=== PATIENT | female | born 1995 | race Caucasian/White ===

== ENCOUNTER 2018-03-26 00:13 | Outpatient (CLI) | payer MEDICAID ==
[2018-03-26 00:45] VITALS: BP 94/54
[2018-03-26] MEDS ORDERED: LACTATED RINGERS 1,000 ML IV ONE (01:28)
[2018-03-26 03:17] LABS: Bilirubin,Urine NEG (Negative); Blood,Urine NEG (Negative); Color,Urine Yellow (Yellow); Mucus,Urine FEW /HPF; Protein,Urine <15 mg/dL mg/dL (Negative); Urobilinogen,Urine < 2.0 mg/dL (<2.0)
[2018-03-26] MEDS ORDERED: BRETHINE SUB-Q ONE (03:50)
--- NOTE | 2018-03-26 05:04 | Ultrasound Report ---
FINAL REPORT EXAM: US OB BPP WO NON-STRESS HISTORY: Labor COMPARISONS: None. FINDINGS: Limited 3rd trimester transabdominal grayscale, color Doppler and M-mode ultrasound Single living intrauterine with recorded cardiac activity of 157 beats per minute. Amniotic fluid volume is subjectively normal. Maximum vertical pocket of fluid measures approximately 6.5 cm. Biophysical profile score is 8/8. IMPRESSION: Single living intrauterine with biophysical profile score of 8/8.
== END 2018-03-26 05:31 | disposition home or self-care (01) ==
LOC: TRG 00:13
PROVIDERS: ATTEND Obstetrics & Gynecology
DX: O62.9 Abnormality of forces of labor, unspecified (principal); Z3A.34 34 weeks gestation of pregnancy
CPT/HCPCS: 59025; 76819; 81001; 96360; J3105

== ENCOUNTER 2018-04-12 14:56 | Outpatient (CLI) | payer MEDICAID ==
[2018-04-12 15:27] VITALS: BP 105/62
[2018-04-12] MEDS ORDERED: TYLENOL PO ONE (17:00)
== END 2018-04-12 16:40 | disposition home or self-care (01) ==
LOC: TRG 14:56
PROVIDERS: ATTEND Obstetrics & Gynecology
DX: O47.03 False labor before 37 completed weeks of gestation, third trimester (principal); Z3A.36 36 weeks gestation of pregnancy
CPT/HCPCS: 59025

== ENCOUNTER 2018-04-28 17:33 | Outpatient (CLI) | payer MEDICAID ==
[2018-04-28 18:03] VITALS: BP 116/68
== END 2018-04-28 18:36 | disposition home or self-care (01) ==
LOC: TRG 17:33
PROVIDERS: ATTEND Obstetrics & Gynecology
DX: O47.1 False labor at or after 37 completed weeks of gestation (principal); Z3A.38 38 weeks gestation of pregnancy
CPT/HCPCS: 59025

== ENCOUNTER 2018-04-29 02:26 | Inpatient (IN) | payer MEDICAID ==
[2018-04-29] MEDS ORDERED: SUBLIMAZE ONE (02:31)
[2018-04-29] MEDS ORDERED: LACTATED RINGERS 1,000 ML ONE (02:31)
[2018-04-29] MEDS ORDERED: XYLOCAINE 2% INFILTRATI ONE (02:49)
[2018-04-29] MEDS ORDERED: ePHEDrine SULFATE IV PRN (02:49)
[2018-04-29] MEDS ORDERED: SUBLIMAZE IV PRN (02:49)
[2018-04-29] MEDS ORDERED: BRETHINE SUB-Q PRN (02:49)
[2018-04-29] MEDS ORDERED: BRETHINE IVP PRN (02:49)
[2018-04-29] MEDS ORDERED: MINERAL OIL PO PRN (02:49)
[2018-04-29] MEDS ORDERED: LACTATED RINGERS 1,000 ML IV SCH (03:00)
[2018-04-29] MEDS ORDERED: ZOFRAN IV PRN (03:10)
[2018-04-29 03:18] LABS: Hematocrit 36.1 % (30.3-42.9); Hemoglobin 11.8 gm/dl (10.1-14.3); Mean Corpuscular HGB Conc 33 % (30-34); Mean Corpuscular Hemoglobin 28 pg (28-32); Mean Corpuscular Volume 86 fl (79-97); Platelet Count 281 K/mm3 (140-440); Red Blood Count 4.18 M/mm3 (3.65-5.03); Red Cell Distribution Width 15.7 % (13.2-15.2)
--- NOTE | 2018-04-29 03:22 | History and Physical Report ---
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 of genital herpes: no Rash, Viral, or Febrile illness since last LMP? no Varicella/Chicken Pox Status: Unknown Genetic History Congenital Heart Defect: Mom: no Dad: no Surinder Disease: Mom: no Dad: no Thalassemia Mom: no Dad: no Neural Tube Defect Mom: no Dad: no Down's Syndrome Mom: no Dad: no Sekou-Sachs Mom: no Dad: no Sickle Cell Disease/Trait Mom: no Dad: no Hemophilia Mom: no Dad: no Muscular Dystrophy Mom: no Dad: no Cystic Fibrosis Mom: no Dad: no [place] Chorea Mom: no Dad: no Mental Retardation Mom: no Dad: no Fragile X Mom: no Dad: no Other Genetic/Chromosomal Disorder Mom: no Dad: no Child w/other defect Mom: no Dad: no Enviromental Exposures Xray Exposure: no Medication, drug, or alcohol use since LMP: no Chemical/Other Exposure: no Exposure to Cat Liter: no Hx of Parvovirus (Fifth Disease): no Occupational Exposure to Children: none Current Allergies (reviewed today): No known allergies Past History - Obstetrical History Expected Date of Delivery: 05/06/18 Actual Gestation: 39 Week(s) 0 Day(s) : 2 Para: 1 Hx # Term Pregnancies: 1 Number of Pregnancies: 0 Spontaneous Abortions: 0 Induced : 0 Number of Living Children: 1 Medications and Allergies Allergies Allergy/AdvReac Type Severity Reaction Status Date / Time No Known Allergies Allergy Verified 04/12/18 15:57 Home Medications Medication Instructions Recorded Confirmed Last Taken Type Vit-Fe Fumar-FA [ 1 tab PO QDAY 04/12/18 04/28/18 04/12/18 09: 00 History Vitamin] 1 Active Meds: Active Medications Ephedrine Sulfate (Ephedrine Sulfate) 10 mg IV Q2M PRN PRN Reason: Hypotension Fentanyl (Sublimaze) 100 mcg IV Q2H PRN PRN Reason: Labor Pain Lactated Ringer's (Lactated Ringers) 1,000 mls @ 125 mls/hr IV DIRECT VIDHYA Oxytocin/Sodium Chloride (Pitocin/Ns 20 Unit/1000ml Drip) 20 units in 1,000 mls @ 125 mls/hr IV DIRECT VIDHYA Oxytocin/Sodium Chloride (Pitocin/Ns 30 Unit/500ml) 30 units in 500 mls @ 4 mls /hr IV TITR VIDHYA; Protocol Lidocaine (Xylocaine 2%) 20 ml INFILTRATI ONCE ONE Stop: 04/29/18 02:50 Mineral Oil (Mineral Oil) 30 ml PO QHS PRN PRN Reason: Constipation Ondansetron HCl (Zofran) 4 mg IV Q8H PRN PRN Reason: Nausea And Vomiting Terbutaline Sulfate (Brethine) 0.25 mg SUB-Q ONCE PRN PRN Reason: Hyperstimulation/Hypertonicity Terbutaline Sulfate (Brethine) 0.25 mg IVP ONCE PRN PRN Reason: Hyperstimulation/Hypertonicity - Vital Signs Vital signs: Vital Signs Resp 20 04/29/18 02:38 Temp Pulse Resp BP Pulse Ox 61 20 112/59 04/29/18 02:49 04/29/18 02:38 04/29/18 02:49 - Physical Exam Breasts: Positive: deferred Cardiovascular: Regular rate, Normal S1, Normal S2 Lungs: Positive: Normal air movement Abdomen: Positive: normal appearance, soft, normal bowel sounds. Negative: distention, tenderness Genitourinary (Female): Positive: normal external genitalia Vulva: both: normal Vagina: Positive: normal moisture. Negative: discharge Cervix: Negative: lesion, discharge Uterus: Positive: normal size, normal contour Adnexa: both: normal Anus/Rectum: Positive: normal perianal skin, heme negative. Negative: rectal mass, hemorrhoids Extremities: Positive: normal Deep Tendon Reflex Grade: Normal +2 - Obstetrical FHR: category 1 Uterine Contraction Monitor Mode: External Cervical Dilatation: 5 (nurse rn bsn) Cervical Effacement Percentage: 90 station: -1 Uterine Contraction Pattern: Regular Uterine Tone Measurement Phase: Resting Uterine Contraction Intensity: Moderate Results Result Diagrams: 04/29/18 02:52 Abnormal lab results 04/29/18 Range/Units 02:52 RDW 15.7 H (13.2-15.2) % All other labs normal. GBS Negative HBsAg Screen Negative Negative *1 RPR Non Reactive Non Reactive *2 Rubella Antibodies, IgG 1.47 index Immune >0.99 *3 Non-immune <0.90 Equivocal 0.90 - 0.99 Immune >0.99 ABO Grouping O *4 Rh Factor Positive *5 Please note: Prior records for this patient's ABO / Rh type are not available for additional verification. Antibody Screen Negative Negative *6 WBC 7.4 x10E3/uL 3.4-10.8 *7 RBC [L] 3.67 x10E6/uL 3.77-5.28 *8 Hemoglobin 11.4 g/dL 11.1-15.9 *9 Hematocrit 34.0 % 34.0-46.6 *10 MCV 93 fL 79-97 *11 MCH 31.1 pg 26.6-33.0 *12 MCHC 33.5 g/dL 31.5-35.7 *13 RDW 13.5 % 12.3-15.4 *14 Platelets 345 x10E3/uL 150-379 *15 Neutrophils 71 % Not Estab. *16 Lymphs 23 % Not Estab. *17 Monocytes 5 % Not Estab. *18 Eos 1 % Not Estab. *19 Basos 0 % Not Estab. *20 ! Immature Cells <No Reported Value> *21 Neutrophils (Absolute) 5.2 x10E3/uL 1.4-7.0 *22 Lymphs (Absolute) 1.7 x10E3/uL 0.7-3.1 *23 Monocytes(Absolute) 0.4 x10E3/uL 0.1-0.9 *24 Eos (Absolute) 0.1 x10E3/uL 0.0-0.4 *25 Baso (Absolute) 0.0 x10E3/uL 0.0-0.2 *26 ! Immature Granulocytes 0 % Not Estab. *27 ! Immature Grans (Abs) 0.0 x10E3/uL 0.0-0.1 *28 ! NRBC <No Reported Value> *29 Hematology Comments: <No Reported Value> *30 Tests: (2) AFP Tetra ([id number]) ! Results Report *31 ! Test Results: *Screen Negative* *32 Tests: (3) Cystic Fibrosis Profile (779371) ! CF, Screen Comment: *55 RESULTS: Negative for 32 mutations analyzed Tests: (4) HB Solu + Rflx Fra (054849) Hemoglobin (Hgb) Solubility Negative Negative *57 Tests: (5) Panel 638430 ([id number]) HIV Screen 4th Generation wRfx Non Reactive Non Reactive *58 Tests: (6) HCV Ab w/Rflx to Verification ([id number]) ! HCV Ab <0.1 s/co ratio 0.0-0.9 *59 Assessment and Plan 23yo @ 39 weeks in active labor GBS negative Orders in EMR Anticipate delivery - Patient Problems (1) 39 weeks gestation of Current Visit: Yes Status: Acute (2) Active labor Current Visit: Yes Status: Acute
[2018-04-29] MEDS: PITOCin/NS 20 UNIT/1000ML DRIP 20 UNITS/1,000 ML BAG IV SCH ×2 (03:52→05:31)
[2018-04-29] MEDS ORDERED: PITOCin/NS 30 UNIT/500ML 30 UNITS/500 ML BAG IV SCH (04:00)
[2018-04-29] MEDS ORDERED: TYLENOL PO PRN (04:23)
[2018-04-29] MEDS ORDERED: DULCOLAX PR PRN (04:23)
[2018-04-29] MEDS ORDERED: TUCKS PAD TP PRN (04:23)
[2018-04-29] MEDS ORDERED: LANSINOH TP PRN (04:23)
[2018-04-29] MEDS ORDERED: PHENERGAN PO PRN (04:23)
[2018-04-29] MEDS ORDERED: MILK OF MAGNESIA PO PRN (04:23)
[2018-04-29] MEDS ORDERED: BENADRYL PO PRN (04:23)
[2018-04-29] MEDS ORDERED: NORCO 5/325 PO PRN (04:23)
--- NOTE | 2018-04-29 04:46 | Procedure Note ---
OB Delivery Note - Delivery Date of Delivery: 04/29/18 [employer] Goods Drier: DARLENE STAFFORD Estimated blood loss: 300cc - Vaginal Delivery presentation: vertex Delivery position: OA Intrapartum events: precipitous labor- <3hr, extend. bradycardia Delivery induction: none Delivery monitor: external FHT, internal FHT Route of delivery: Delivery placenta: spontaneous Delivery cord: 3 umbilical vessels Episiotomy: none Delivery laceration: none Anesthesia: intravenous Delivery comments: Pt presented 5cm and progressed to complete rapidly. Pt gives hx of previous child weighing 9 pounds. Pt was pushing reflexively. Once pt started pushing there was minimal descent. bradycardia to the 70. ISE was applied. notified. Pt pushed squatting for several ctx. Returned to lithothomy position. Considerable descent of the head noted. NICU called to LDR. Total time from start of focused pushing to delivery 18 minutes. live born male over intact perineum, crying. Cord clamped and cut. Baby passed to waiting NICU team. Cord blood obtained. Placenta and membrane delivered complete and intact. 3 vessel cord. Pitocin IVFs. 8/9, EBL 300, wgt 6-12. Mom and baby remain LDR stable. notified of delivery. - A at 1 minute: 8 at 5 minutes: 9 Infant Gender: Male (6-12)
[2018-04-29] MEDS ORDERED: SODIUM CHLORIDE FLUSH SYRINGE 10 ML IV NR (05:00)
[2018-04-29] MEDS: MOTRIN PO SCH ×3 (05:32→19:53)
[2018-04-29 15:49] LABS: Hematocrit 31.2 % (30.3-42.9); Hemoglobin 10.4 gm/dl (10.1-14.3)
[2018-04-30] MEDS: MOTRIN PO SCH ×3 (05:13→12:05)
[2018-04-30] MEDS ORDERED: BOOSTRIX IM ONE (06:00)
[2018-04-30] MEDS ORDERED: M-M-R II VACCINE SUB-Q ONE (06:00)
--- NOTE | 2018-04-30 16:20 | Discharge Summary ---
Providers - Providers Date of Admission: 04/29/18 02:30 Date of discharge: 04/30/18 Attending physician: CRISTINA LEE Primary care physician: CRISTINA LEE Hospitalization Reason for admission: active labor (23yo @ 39 weeks in active labor. No complaints today, ambulating in room requesting to be discharged. Minimal bleeding today. Breasts were soft no signs and symptoms of engorgement or infection. Abdomen soft, nontender fundus firm below umbilicus. Extremities without edema and nontender.) Delivery: Girard baby: male Hospital course: 23yo @ 39 weeks in active labor, she had an . Hospital course has been unremarkable, she desires d/c home today after Depoprovera Condition at discharge: Good Disposition: DC-01 TO HOME OR SELFCARE - Discharge Diagnoses (1) Spontaneous vaginal delivery Status: Acute Plan - Discharge Medications Prescriptions: Ibuprofen [Motrin 800 MG tab] 800 mg PO TID PRN #30 tablet PRN Reason: Pain Lidocain2.5%/Prilocai2.5% [Emla] 5 gm TP ONCE #1 tube - Provider Discharge Summary Activity: routine, no sex for 6 weeks, no heavy lifting 4 weeks, no strenuous exercise Additional instructions: [] Smoking cessation referral if applicable(refer to patient education folder for contact #) [] Refer to [facility] Booklet Call your doctor immediately for: * Fever > 100.5 * Heavy vaginal bleeding ( >1 pad per hour) * Severe persistent headache * Shortness of breath * Reddened, hot, painful area to leg or breast * Drainage or odor from incision. * Keep incision clean and dry at all times and follow doctor's instructions regarding bathing/showering - Follow up plan Follow up: CRISTINA LEE MD [Primary Care Provider] - 7 Days Forms: [facility] Discharge Summary
[2018-04-30 16:46] VITALS: BP 102/57
== END 2018-04-30 17:10 | disposition home or self-care (01) | DRG 775 ==
LOC: TRG 02:26 → LD 02:30 → OB 06:11
PROVIDERS: ADMIT Obstetrics & Gynecology; ATTEND Obstetrics & Gynecology
PROC: 10E0XZZ Delivery of Products of Conception, External Approach (ICD-10-PCS; principal; 2018-04-29)
DX: O76 Abnormality in fetal heart rate and rhythm complicating labor and delivery (principal); O62.3 Precipitate labor; Z3A.39 39 weeks gestation of pregnancy; Z37.0 Single live birth
CPT/HCPCS: 36415; 85014; 85018; 85027; 86592; 86850; 86900; 86901; 90471; 90715; 96360; 99211; G0463; J2590; J3010; J7120

== ENCOUNTER 2019-08-04 23:15 | Emergency (ER) | payer MEDICAID ==
[2019-08-05 00:49] LABS: Basophils % (Auto) 0.4 % (0.0-1.8); Eosinophils # (Auto) 0.1 K/mm3 (0.0-0.4); Eosinophils % (Auto) 0.8 % (0.0-4.3); Hematocrit 30.1 % (30.3-42.9); Hemoglobin 10.4 gm/dl (10.1-14.3); Lymphocytes % (Auto) 12.1 % (13.4-35.0); Mean Corpuscular HGB Conc 34 % (30-34); Mean Corpuscular Volume 93 fl (79-97); Monocytes # (Auto) 0.5 K/mm3 (0.0-0.8); Monocytes % (Auto) 5.8 % (0.0-7.3); Platelet Count 308 K/mm3 (140-440); Red Blood Count 3.25 M/mm3 (3.65-5.03); Red Cell Distribution Width 13.4 % (13.2-15.2)
[2019-08-05 00:56] LABS: BUN/Creatinine Ratio 8; Blood Urea Nitrogen 4 mg/dL (7-17); Calcium 8.4 mg/dL (8.4-10.2); Hemolysis Index 15
--- NOTE | 2019-08-05 02:13 | Emergency Department Report ---
ED ENT HPI - General Chief complaint: Dental/Oral Stated complaint: ABSCESS ON LT SIDE OF FACE Time Seen by Provider: 08/05/19 02:13 Source: patient Mode of arrival: Ambulatory Limitations: No Limitations - History of Present Illness Initial comments: Patient is a 24-year-old female that presents emergency room with complaints of left oral abscess and swelling. Patient states now for 5 days. Patient states she was seen in urgent care and given clindamycin and pain medications 2 days ago. Patient states when she started medications the pain got worse. Patient states the swelling also got worse. Patient states the pain is better with rest and worse with movement of her mouth. She denies fever and chills. Patient denies chest pain shortness of breath. Patient states the swelling is swelling down towards her neck. Patient states she is also 21 weeks . Patient states she's not having any abdominal pain or vaginal discharge or problems with the at this time. Patient states she's been followed by an ASSISTANT FILM EDITOR. Patient states she's has twins at this time. MD complaint: other (left lower jaw and check) -: Sudden, days(s) Location: other Severity: severe Severity scale (0 -10): 10 Quality: stabbing Consistency: constant Improves with: rest Worsens with: swallowing, medication, movement Associated Symptoms: gum swelling, pain with swallowing. denies: fever, cough, toothache, sore throat, tinnitus, hearing loss, discharge from ear, rhinorrhea - Related Data Home Medications Medication Instructions Recorded Confirmed Last Taken Vit-Fe Fumar-FA [ 1 tab PO QDAY 04/12/18 04/29/18 04/28/18 Vitamin] Previous Rx's Medication Instructions Recorded Last Taken Type Ibuprofen [Motrin 800 MG tab] 800 mg PO TID PRN #30 tablet 04/29/18 Unknown Rx Lidocain2.5%/Prilocai2.5% [Emla] 5 gm TP ONCE #1 tube 04/30/18 Unknown Rx predniSONE [Deltasone] 10 mg PO .TAPER #21 tab 08/05/19 Unknown Rx Allergies Allergy/AdvReac Type Severity Reaction Status Date / Time No Known Allergies Allergy Verified 04/12/18 15:57 ED Dental HPI - General Chief complaint: Dental/Oral Stated complaint: ABSCESS ON LT SIDE OF FACE Time Seen by Provider: 08/05/19 02:13 Source: patient Mode of arrival: Ambulatory Limitations: No Limitations - Related Data Home Medications Medication Instructions Recorded Confirmed Last Taken Vit-Fe Fumar-FA [ 1 tab PO QDAY 04/12/18 04/29/18 04/28/18 Vitamin] Previous Rx's Medication Instructions Recorded Last Taken Type Ibuprofen [Motrin 800 MG tab] 800 mg PO TID PRN #30 tablet 04/29/18 Unknown Rx Lidocain2.5%/Prilocai2.5% [Emla] 5 gm TP ONCE #1 tube 04/30/18 Unknown Rx predniSONE [Deltasone] 10 mg PO .TAPER #21 tab 08/05/19 Unknown Rx Allergies Allergy/AdvReac Type Severity Reaction Status Date / Time No Known Allergies Allergy Verified 04/12/18 15:57 ED Review of Systems ROS: Stated complaint: ABSCESS ON LT SIDE OF FACE Other details as noted in HPI Constitutional: denies: chills, fever Eyes: denies: eye pain, eye discharge, vision change ENT: dental pain. denies: ear pain, throat pain Respiratory: denies: cough, shortness of breath, wheezing Cardiovascular: denies: chest pain, palpitations Endocrine: no symptoms reported Gastrointestinal: denies: abdominal pain, nausea, diarrhea Genitourinary: denies: urgency, dysuria, discharge Musculoskeletal: denies: back pain, joint swelling, arthralgia Skin: denies: rash, lesions Neurological: denies: headache, weakness, paresthesias Psychiatric: denies: anxiety, depression Hematological/Lymphatic: denies: easy bleeding, easy bruising ED Past Medical Hx - Past Medical History Previous Medical History?: No Hx Hypertension: No Hx Diabetes: No Hx Deep Vein Thrombosis: No Hx Renal Disease: No Hx Sickle Cell Disease: No Hx Seizures: No Hx Asthma: No Hx HIV: No - Surgical History Past Surgical History?: No - Family History Family history: no significant - Social History Smoking Status: Never Smoker Substance Use Type: None - Medications Home Medications: Home Medications Medication Instructions Recorded Confirmed Last Taken Type Vit-Fe Fumar-FA [ 1 tab PO QDAY 04/12/18 04/29/18 04/28/18 History Vitamin] Ibuprofen [Motrin 800 MG tab] 800 mg PO TID PRN #30 tablet 04/29/18 Unknown Rx Lidocain2.5%/Prilocai2.5% [Emla] 5 gm TP ONCE #1 tube 04/30/18 Unknown Rx predniSONE [Deltasone] 10 mg PO .TAPER #21 tab 08/05/19 Unknown Rx ED Physical Exam - General Limitations: No Limitations General appearance: alert, in no apparent distress - Head Head exam: Present: atraumatic, normocephalic - Eye Eye exam: Present: normal appearance - ENT ENT exam: Present: mucous membranes moist, other (left lower jawline and cheek swelling noted. Area is nonfluctuant.) - Neck Neck exam: Present: normal inspection, tenderness ( Left jawline tenderness to palpation.), lymphadenopathy, other (large left facial swelling noted.) - Respiratory Respiratory exam: Present: normal lung sounds bilaterally. Absent: respiratory distress - Cardiovascular Cardiovascular Exam: Present: regular rate, normal rhythm. Absent: systolic murmur, diastolic murmur, rubs, gallop - GI/Abdominal GI/Abdominal exam: Present: soft, normal bowel sounds - Rectal Rectal exam: Present: deferred - Extremities Exam Extremities exam: Present: normal inspection - Back Exam Back exam: Present: normal inspection - Neurological Exam Neurological exam: Present: alert, oriented X3 - Psychiatric Psychiatric exam: Present: normal affect, normal mood - Skin Skin exam: Present: warm, dry, intact, normal color. Absent: rash ED Course Vital Signs 08/04/19 23:33 Temperature 99.3 F Pulse Rate 87 Respiratory 18 Rate Blood Pressure 112/58 O2 Sat by Pulse 97 Oximetry - Reevaluation(s) Reevaluation #1: I discussed all results with patient. I discussed plan of care with patient. Patient agrees with plan of care. Patient is stable for discharge. Patient will be discharged home. Patient given discharge instructions. Patient voiced understanding of discharge instructions. 08/05/19 03:39 ED Medical Decision Making - Lab Data Result diagrams: 08/05/19 00:21 08/05/19 00:21 - Radiology Data Radiology results: report reviewed CT neck w con INDICATION / CLINICAL INFORMATION: 24 years Female; left face and neck swollen. TECHNIQUE: Contiguous thin cut axial images obtained through the neck following IV contrast. Sagittal and coronal reconstructions performed by the technologist. All CT scans at this location are performed using CT dose reduction for ALARA by means of automated exposure control. COMPARISON: None available. FINDINGS: There is a loculated fluid collection along the angle of the mandible. This fluid collection measures approximately 3.1 cm craniocaudally by 3.4 cm AP by 2.9 cm transversely. The source this fluid collection appears to be related to periodontal disease associated with the second molar along the left mandibular alveolar ridge. The periapical lucency associated with this finding appears to have interrupted through the medial cortex of the adjacent mandible. Surrounding cellulitic process noted. MUCOSAL SPACE: [place] tonsils are prominent. Presumed reactive adenoidal tissue seen in the roof the nasopharynx. Otherwise, the nasopharynx, oropharynx and vallecula, oral cavity and floor of mouth, hypopharynx, and larynx are grossly normal. LYMPH NODES: Reactive lymph nodes with the above process noted. No evidence of suppurative adenopathy. SALIVARY GLANDS: Parotid, submandibular, and visualized sublingual glands are within normal limits. There is significant mass effect on the left submandibular gland the above process. THYROID GLAND: Unremarkable. PARANASAL SINUSES: There is minimal mucosal thickening in the mastoids on the ri ght. SPINE: No significant abnormality of the cervical spine appreciated. VASCULAR STRUCTURES: Vascular structures are grossly normal in appearance. Surrounding soft tissues are otherwise grossly normal. IMPRESSION: 1. Periapical abscess associated with the second molar along the left mandibular alveolar ridge. Associated abscess is seen in the adjacent soft tissues, as described above. Reactive adenopathy noted. - Medical Decision Making Patient is a 24-year-old female that presents emergency room with complaints of left facial swelling and pain. Patient found to have a dental infection and will is already on clindamycin and hydrocodone. Patient given increase the pain is worsening. Patient's pain is worsening most like secondary to the local inflammatory response due to the antibiotics.. Patient's had a CT done and it shows a dental abscess with secondary cellulitis. Patient will be given steroids. Patient instructed to continue clindamycin. Patient instructed to follow up with a dentist as soon as possible. Patient instructed to follow-up with ASSISTANT FILM EDITOR and to clear all medications prior to starting new medications with her ASSISTANT FILM EDITOR. Patient instructed to follow up with her primary care. Patient stable for discharge. Patient discharged home. - Differential Diagnosis dental abscess. Cellulitis. Critical care attestation.: If time is entered above; I have spent that time in minutes in the direct care of this critically ill patient, excluding procedure time. ED Disposition Clinical Impression: Dental abscess, Oral cellulitis, Pain, dental Qualifiers: Weeks of gestation: 21 weeks Qualified Code(s): Z3A.21 - 21 weeks gestation of Disposition: - TO HOME OR SELFCARE Is pt being admited?: No Does the pt Need Aspirin: No Condition: Stable Instructions: Dental Abscess (ED), Dental Caries (ED), Toothache (ED) Additional Instructions: Patient to follow-up with primary care in 2-3 days. Patient to follow-up with dentist in 1-2 days. Patient to follow-up with ASSISTANT FILM EDITOR 2 days. Patient to return to ER if condition worsens. Patient to rest. Patient to increase water. Patient to take meds as directed. Patient to continue clindamycin and hydrocodone as needed. Patient's take Tylenol when necessary for pain. Prescriptions: predniSONE [Deltasone] 10 mg PO .TAPER #21 tab Referrals: OVIDIO SANCHEZ MD [Primary Care Provider] - 2-3 Days Time of Disposition: 03:39
--- NOTE | 2019-08-05 03:06 | Cat Scan Report ---
CT neck w con INDICATION / CLINICAL INFORMATION: 24 years Female; left face and neck swollen. TECHNIQUE: Contiguous thin cut axial images obtained through the neck following IV contrast. Sagittal and peterson l reconstructions performed by the technologist. All CT scans at this location are performed using CT dose reduction for ALARA by means of automated exposure control. COMPARISON: None available. FINDINGS: There is a loculated fluid collection along the angle of the mandible. This fluid collectio n measures approximately 3.1 cm craniocaudally by 3.4 cm AP by 2.9 cm transversely. The source this f luid collection appears to be related to periodontal disease associated with the second molar along t he left mandibular alveolar ridge. The periapical lucency associated with this finding appears to hav e interrupted through the medial cortex of the adjacent mandible. Surrounding cellulitic process note d. MUCOSAL SPACE: [place] tonsils are prominent. Presumed reactive adenoidal tissue seen in the roof th e nasopharynx. Otherwise, the nasopharynx, oropharynx and vallecula, oral cavity and floor of mouth, hypopharynx, and larynx are grossly normal. LYMPH NODES: Reactive lymph nodes with the above process noted. No evidence of suppurative adenopathy . SALIVARY GLANDS: Parotid, submandibular, and visualized sublingual glands are within normal limits. T here is significant mass effect on the left submandibular gland the above process. THYROID GLAND: Unremarkable. PARANASAL SINUSES: There is minimal mucosal thickening in the mastoids on the right. SPINE: No significant abnormality of the cervical spine appreciated. VASCULAR STRUCTURES: Vascular structures are grossly normal in appearance. Surrounding soft tissues are otherwise grossly normal. IMPRESSION: 1. Periapical abscess associated with the second molar along the left mandibular alveolar ridge. Asso ciated abscess is seen in the adjacent soft tissues, as described above. Reactive adenopathy noted. Signer Name: Farrukh Stoll MD, III Signed: 08/05/2019 3:02 AM Workstation Name: [employer]
[2019-08-05] MEDS ORDERED: SOLU-Medrol IM ONE (03:29)
[2019-08-05 04:09] VITALS: BP 135/78
== END 2019-08-05 04:07 | disposition home or self-care (01) ==
LOC: ED 23:15
DX: O26.892 Other specified pregnancy related conditions, second trimester (principal); K12.2 Cellulitis and abscess of mouth; K04.7 Periapical abscess without sinus
CPT/HCPCS: 36415; 70491; 80048; 85025; 96372; 99284; J2930; Q9967

== ENCOUNTER 2019-11-03 12:07 | Inpatient (IN) | payer MEDICAID ==
[2019-11-03] MEDS ORDERED: DOCUSATE SODIUM 100 MG CAP PO PRN (12:15)
[2019-11-03] MEDS ORDERED: ACETAMINOPHEN 325 MG TAB PO PRN (12:15)
[2019-11-03] MEDS ORDERED: MAGNESIUM HYDROXIDE (MOM) ORAL LIQD UDC PO PRN (12:15)
[2019-11-03] MEDS ORDERED: diphenhydrAMINE 25 MG CAP PO PRN (12:15)
[2019-11-03] MEDS ORDERED: ALUM-MAG HYDROXIDE-SIMETHICONE 200-200-20MG/5ML ORAL LIQD 30 ML PO PRN (12:15)
[2019-11-03] MEDS ORDERED: SODIUM CHLORIDE NASAL SPRAY 44ML NS PRN (12:15)
[2019-11-03] MEDS ORDERED: ONDANSETRON 4 MG/2 ML INJ IV PRN (12:15)
--- NOTE | 2019-11-03 12:15 | History and Physical Report ---
History of Present Illness Date of examination: 11/03/19 Date of admission: 11/03/19 12:07 Chief complaint: [place]/di twins sent from [facility] for steroids and delivery after steroids are completed. History of present illness: EDC Confirmation: 12/15/2019 Past History : 4 Term Births: 2 Premature Births: 0 Living Children: 2 Para: 2 Mult. Births: 0 Prev : 0 Prev. attempt? 0 Aborta: 1 Elect. Ab: 0 Spont. Ab: 1 Ectopics: 0 # 1 Delivery date: 2011 Weeks Gestation: 40 Delivery type: Delivery location: [facility] Sex: Female Comments: no complications # 2 Delivery date: 04/29/2018 Weeks Gestation: 39 Delivery type: Vaginal Anesthesia type: none Delivery location: [facility] [place] Infant Sex: male weight: 6.75 Comments: precipitous delivery # 3 Delivery date: 02/2019 Weeks Gestation: 4 Comments: expt mgmt Past Medical History: Reviewed history from 12/02/2017 and no changes required: Negative Past Medical History Past Surgical History: Reviewed history from 12/02/2017 and no changes required: Negative Past Surgical History Past Medical History Abnormal PAP: negative NILSA Exposure: negative Infertility: negative Uterine Anomaly: negative Uterine Surgery (not C/S): negative Other Gynecologic Problems: negative Social Hx: single. lives with patents and children no e/t/d unemployed Infection History Hx of STD: none HIV Risk Eval: low risk Hepatitis B Risk Eval: low risk Personal hx. of genital herpes: no Partner hx. of genital herpes: no Rash, Viral, or Febrile illness since last LMP? no Varicella/Chicken Pox Status: Immunized TB Risk: no Genetic History Congenital Heart Defect: Mom: no Dad: no Surinder Disease: Mom: no Dad: no Thalassemia Mom: no Dad: no Neural Tube Defect Mom: no Dad: no Down's Syndrome Mom: no Dad: no Sekou-Sachs Mom: no Dad: no Sickle Cell Disease/Trait Mom: no Dad: no Hemophilia Mom: no Dad: no Muscular Dystrophy Mom: no Dad: no Cystic Fibrosis Mom: no Dad: no Nallely Chorea Mom: no Dad: no Mental Retardation Mom: no Dad: no Fragile X Mom: no Dad: no Other Genetic/Chromosomal Disorder Mom: no Dad: no Child w/other defect Mom: no Dad: no Enviromental Exposures Enviromental Exposures Reviewed Xray Exposure: no Medication, drug, or alcohol use since LMP: no Chemical/Other Exposure: no Exposure to Cat Liter: no Hx of Parvovirus (Fifth Disease): no Occupational Exposure to Children: none Active Medications (reviewed today): PNV () Current Allergies: No known allergies Past History Past Medical History: other (see HPI) Past Surgical History: other (see HPI) RECORDIST History: other (see HPi) - Obstetrical History Expected Date of Delivery: 12/15/19 Actual Gestation: 34 Week(s) 0 Day(s) : 4 Para: 2 Hx # Term Pregnancies: 2 Number of Pregnancies: 0 Spontaneous Abortions: 1 Induced : 0 Number of Living Children: 2 Medications and Allergies Allergies Allergy/AdvReac Type Severity Reaction Status Date / Time No Known Allergies Allergy Verified 04/12/18 15:57 Home Medications Medication Instructions Recorded Confirmed Last Taken Type Vit-Fe Fumar-FA [ 1 tab PO QDAY 04/12/18 04/29/18 04/28/18 History Vitamin] Ibuprofen [Motrin 800 MG tab] 800 mg PO TID PRN #30 tablet 04/29/18 Unknown Rx Lidocain2.5%/Prilocai2.5% [Emla] 5 gm TP ONCE #1 tube 04/30/18 Unknown Rx predniSONE [Deltasone] 10 mg PO .TAPER #21 tab 08/05/19 Unknown Rx Review of Systems All systems: negative - Physical Exam Breasts: Positive: normal Cardiovascular: Regular rate Lungs: Positive: Clear to auscultation, Normal air movement Abdomen: Positive: normal appearance, soft Genitourinary (Female): Positive: normal external genitalia, normal perenium Vulva: both: normal Uterus: Positive: normal size, normal contour Anus/Rectum: Positive: normal perianal skin Extremities: Positive: normal Deep Tendon Reflex Grade: Normal +2 - Obstetrical FHR: auscultation normal Uterine Contraction Monitor Mode: External Uterine Tone Measurement Phase: Resting Results Result Diagrams: 11/03/19 12:15 HBsAg Screen Negative Negative *1 RPR Non Reactive Non Reactive *2 Rubella Antibodies, IgG 1.09 index Immune >0.99 *3 Non-immune <0.90 Equivocal 0.90 - 0.99 Immune >0.99 ABO Grouping O *4 Rh Factor Positive *5 Please note: Prior records for this patient's ABO / Rh type are not available for additional verification. Antibody Screen Negative Negative *6 WBC 6.9 x10E3/uL 3.4-10.8 *7 RBC [L] 3.17 x10E6/uL 3.77-5.28 *8 Hemoglobin [L] 9.4 g/dL 11.1-15.9 *9 Hematocrit [L] 29.6 % 34.0-46.6 *10 MCV 93 fL 79-97 *11 MCH 29.7 pg 26.6-33.0 *12 MCHC 31.8 g/dL 31.5-35.7 *13 RDW 13.6 % 12.3-15.4 *14 Platelets 306 x10E3/uL 150-450 *15 Neutrophils 65 % Not Estab. *16 Lymphs 26 % Not Estab. *17 Monocytes 6 % Not Estab. *18 Eos 2 % Not Estab. *19 Basos 0 % Not Estab. *20 ! Immature Cells <No Reported Value> *21 Neutrophils (Absolute) 4.5 x10E3/uL 1.4-7.0 *22 Lymphs (Absolute) 1.8 x10E3/uL 0.7-3.1 *23 Monocytes(Absolute) 0.4 x10E3/uL 0.1-0.9 *24 Eos (Absolute) 0.2 x10E3/uL 0.0-0.4 *25 Baso (Absolute) 0.0 x10E3/uL 0.0-0.2 *26 ! Immature Granulocytes 1 % Not Estab. *27 ! Immature Grans (Abs) 0.0 x10E3/uL 0.0-0.1 *28 ! NRBC <No Reported Value> *29 Hematology Comments: <No Reported Value> *30 Tests: (2) HB Solu + Rflx [facility] (572244) Hemoglobin (Hgb) Solubility Negative Negative *31 Tests: (3) Panel 844820 ([id number]) HIV Screen 4th Generation wRfx Non Reactive Non Reactive *32 Tests: (4) HCV Ab w/Rflx to Verification ([id number]) ! HCV Ab <0.1 s/co ratio 0.0-0.9 *33 Tests: (5) Comment: ([id number]) ! Comment: SPRCS *34 Non reactive HCV antibody screen is consistent with no HCV infection, unless recent infection is suspected or other evidence exists to indicate HCV infection. Tests: (6) Urine Culture, Routine ([id number]) Urine Culture, Routine Final report *35 Tests: (7) Result ([id number]) ! Result 1 MUG *36 Mixed urogenital renae 50,000-100,000 colony forming units per mL Assessment and Plan 24y/o @ 34+0 weeks, with mono/di twins, baby A is IUGR. she has been somewhat inconsistent with care and has missed appointments with [facility] and with our office. Received notification from Dr. Dos Santos with [facility] that patient needs to be admitted for steroids and NICU consult, plan for delivery 12hrs after steroids have been completed. Admission orders in EMR. Baby B transverse presentation at [facility] today, patient states she wants c/s for delivery if baby B continues in transverse lie as she also wants a tubal ligation for sterilization. If baby B is vertex after steroids, pt would like vaginal . - Patient Problems (1) Monochorionic diamniotic twin gestation in third trimester Current Visit: Yes Status: Acute Plan to address problem: vertex/transverse at today's [facility] appointment continuos EFW/toco IOL once steroid injections are complete. (2) 34 weeks gestation of Current Visit: Yes Status: Acute Plan to address problem: steroids for lung maturity (3) IUGR (intrauterine growth restriction) Current Visit: Yes Status: Acute Plan to address problem: continuous efw/toco delivery once steroids are complete. (4) Sterilization Current Visit: Yes Status: Acute Plan to address problem: if c/s is indicated, patient desires permanent sterilization. Tubal consents signed 10/25/19 in office (5) Malpresentation of fetus Current Visit: Yes Status: Acute Qualifiers: malpresentation type: transverse lie Fetus number: fetus 2 of multiple gestation Qualified Code(s): O32.2XX2 - Maternal care for transverse and oblique lie, fetus 2 Plan to address problem: u/s to confirm presentation after completion of steroids if baby B remains transverse, will proceed with c/s delivery
[2019-11-03 13:36] LABS: Basophils % (Auto) 0.5 % (0.0-1.8); Eosinophils # (Auto) 0.1 K/mm3 (0.0-0.4); Eosinophils % (Auto) 1.5 % (0.0-4.3); Hematocrit 30.9 % (30.3-42.9); Hemoglobin 10.3 gm/dl (10.1-14.3); Lymphocytes % (Auto) 22.8 % (13.4-35.0); Mean Corpuscular HGB Conc 33 % (30-34); Mean Corpuscular Volume 82 fl (79-97); Monocytes # (Auto) 0.6 K/mm3 (0.0-0.8); Monocytes % (Auto) 6.2 % (0.0-7.3); Platelet Count 316 K/mm3 (140-440); Red Blood Count 3.75 M/mm3 (3.65-5.03); Red Cell Distribution Width 15.4 % (13.2-15.2)
[2019-11-03] MEDS: BETAMET ACET/BETAMET NA PH 6 MG/ML INJ 5 ML MDV IM SCH (14:07)
--- NOTE | 2019-11-03 21:52 | Consultation ---
Consult Note - Parent Education I met with parent(s) and discussed the following:: Need for NICU admission, Poss ible need for intubation and surfactant or other resp support, Temperature regulation, Possible need for IV fluids/TPN and IV antibiotics, Possible need for umbilical lines, Importance of providing breast milk & encouraged pumping aft delivery, Donor breast milk if baby meets criteria after , Slow feeding advancement and monitoring of tolerance. NG/OG feeds, Need to monitor for jaundice, Data for survival & survival without significant co-morbidities Parent(s) demonstrated understanding of all the information:: Yes Assessment and Plan - Assessment Gestation:: 34 Estimated Weight: N/A Baby's gender: Female Baby's name: Keila Additional Comment: [place]-di, 34 weeker twins. A is IUGR and B is in transverse position. - Plan Plan: Agree with Mag & steroids Will attend delivery Please call NICU with questions
--- NOTE | 2019-11-04 08:32 | Progress Note ---
Assessment and Plan Pt and her both aware of POC; complete BMZ wait 12 hours, repeat US, if both babies are vertex will proceed with IOL, if baby B is transverse will proceed with c/s and tubal ligation. All questions addressed. Continue POC as ordered. Subjective - Subjective Date of service: 11/04/19 (pt resting No c/o voiced) Patient reports: movement normal Objective - Vital Signs Vital Signs: Vital Signs - 12hr 11/03/19 11/03/19 11/03/19 20:30 20:35 20:36 Pulse Rate 90 101 H 87 Blood Pressure O2 Sat by Pulse 95 94 94 Oximetry 11/03/19 11/03/19 11/03/19 20:54 20:59 21:04 Pulse Rate 71 94 H 109 H Blood Pressure O2 Sat by Pulse 100 98 97 Oximetry 11/03/19 11/03/19 11/03/19 21:09 21:14 21:19 Pulse Rate 100 H 102 H 87 Blood Pressure 115/59 O2 Sat by Pulse 94 96 96 Oximetry 11/03/19 11/03/19 11/03/19 21:24 21:25 21:29 Pulse Rate 99 H 98 H 87 Blood Pressure O2 Sat by Pulse 95 94 97 Oximetry 11/03/19 11/03/19 11/03/19 21:30 21:34 21:37 Pulse Rate 86 84 85 Blood Pressure O2 Sat by Pulse 94 96 94 Oximetry 11/03/19 11/03/19 11/03/19 21:39 21:44 21:49 Pulse Rate 98 H 100 H 97 H Blood Pressure O2 Sat by Pulse 94 94 96 Oximetry 11/03/19 11/03/19 11/03/19 21:50 21:54 21:55 Pulse Rate 90 91 H 90 Blood Pressure O2 Sat by Pulse 94 96 94 Oximetry 11/03/19 11/03/19 11/03/19 21:59 22:04 22:09 Pulse Rate 100 H 91 H 101 H Blood Pressure O2 Sat by Pulse 97 96 97 Oximetry 11/03/19 11/03/19 11/03/19 22:14 22:19 22:24 Pulse Rate 93 H 103 H 105 H Blood Pressure O2 Sat by Pulse 97 96 96 Oximetry 11/03/19 11/03/19 11/03/19 22:29 22:34 22:39 Pulse Rate 102 H 100 H 94 H Blood Pressure O2 Sat by Pulse 96 97 98 Oximetry 11/03/19 11/03/19 11/03/19 22:44 22:49 22:50 Pulse Rate 97 H 92 H 80 Blood Pressure O2 Sat by Pulse 96 96 94 Oximetry 11/03/19 11/03/19 11/03/19 22:54 22:59 23:04 Pulse Rate 100 H 79 103 H Blood Pressure O2 Sat by Pulse 97 95 94 Oximetry 11/03/19 11/03/19 11/03/19 23:09 23:12 23:14 Pulse Rate 99 H 103 H 105 H Blood Pressure O2 Sat by Pulse 96 94 95 Oximetry 11/03/19 11/03/19 11/03/19 23:17 23:19 23:24 Pulse Rate 102 H 93 H 93 H Blood Pressure O2 Sat by Pulse 94 96 96 Oximetry 11/03/19 11/03/19 11/03/19 23:29 23:31 23:34 Pulse Rate 95 H 99 H 81 Blood Pressure O2 Sat by Pulse 97 92 95 Oximetry 11/03/19 11/03/19 11/03/19 23:37 23:39 23:44 Pulse Rate 83 97 H 77 Blood Pressure O2 Sat by Pulse 94 94 96 Oximetry 11/03/19 11/03/19 11/03/19 23:49 23:52 23:54 Pulse Rate 94 H 86 89 Blood Pressure O2 Sat by Pulse 95 94 95 Oximetry 11/03/19 11/04/19 11/04/19 23:59 00:04 00:09 Pulse Rate 97 H 104 H 99 H Blood Pressure O2 Sat by Pulse 93 95 95 Oximetry 11/04/19 11/04/19 11/04/19 00:14 00:19 00:24 Pulse Rate 95 H 99 H 92 H Blood Pressure O2 Sat by Pulse 96 96 94 Oximetry 11/04/19 11/04/19 11/04/19 00:29 00:32 00:34 Pulse Rate 96 H 98 H 85 Blood Pressure O2 Sat by Pulse 97 94 95 Oximetry 11/04/19 11/04/19 11/04/19 00:39 00:44 00:46 Pulse Rate 83 93 H 93 H Blood Pressure O2 Sat by Pulse 94 93 94 Oximetry 11/04/19 11/04/19 11/04/19 00:49 00:52 00:54 Pulse Rate 83 91 H 83 Blood Pressure O2 Sat by Pulse 95 94 96 Oximetry 11/04/19 11/04/19 11/04/19 00:58 00:59 01:04 Pulse Rate 82 104 H 82 Blood Pressure O2 Sat by Pulse 94 93 94 Oximetry 11/04/19 11/04/19 11/04/19 01:09 01:14 01:19 Pulse Rate 93 H 83 87 Blood Pressure O2 Sat by Pulse 93 93 93 Oximetry 11/04/19 11/04/19 11/04/19 01:24 01:29 01:34 Pulse Rate 79 99 H 83 Blood Pressure O2 Sat by Pulse 97 96 97 Oximetry 11/04/19 11/04/19 11/04/19 01:37 01:39 01:44 Pulse Rate 88 95 H 80 Blood Pressure O2 Sat by Pulse 94 97 97 Oximetry 11/04/19 11/04/19 11/04/19 01:49 01:51 01:54 Pulse Rate 89 61 86 Blood Pressure O2 Sat by Pulse 96 94 96 Oximetry 11/04/19 11/04/19 11/04/19 01:59 02:04 02:05 Pulse Rate 91 H 85 88 Blood Pressure O2 Sat by Pulse 96 95 94 Oximetry 11/04/19 11/04/19 11/04/19 02:09 02:10 02:14 Pulse Rate 77 80 73 Blood Pressure O2 Sat by Pulse 93 94 95 Oximetry 11/04/19 11/04/19 11/04/19 02:19 02:24 02:29 Pulse Rate 83 82 76 Blood Pressure O2 Sat by Pulse 96 97 97 Oximetry 11/04/19 11/04/19 11/04/19 02:34 02:39 02:44 Pulse Rate 98 H 77 77 Blood Pressure O2 Sat by Pulse 96 97 97 Oximetry 11/04/19 11/04/19 11/04/19 02:47 02:49 02:54 Pulse Rate 88 75 94 H Blood Pressure O2 Sat by Pulse 94 96 95 Oximetry 11/04/19 11/04/19 11/04/19 02:57 02:59 03:04 Pulse Rate 90 75 86 Blood Pressure O2 Sat by Pulse 94 96 95 Oximetry 11/04/19 11/04/19 11/04/19 03:09 03:10 03:14 Pulse Rate 79 74 77 Blood Pressure O2 Sat by Pulse 96 94 96 Oximetry 11/04/19 11/04/19 11/04/19 03:19 03:25 03:30 Pulse Rate 80 86 79 Blood Pressure O2 Sat by Pulse 97 98 96 Oximetry 11/04/19 11/04/19 11/04/19 03:34 03:35 03:40 Pulse Rate 75 87 82 Blood Pressure O2 Sat by Pulse 93 96 96 Oximetry 11/04/19 11/04/19 11/04/19 03:41 03:45 03:50 Pulse Rate 72 80 78 Blood Pressure O2 Sat by Pulse 94 95 96 Oximetry 11/04/19 11/04/19 11/04/19 03:54 03:55 04:00 Pulse Rate 80 81 80 Blood Pressure O2 Sat by Pulse 94 95 93 Oximetry 11/04/19 11/04/19 11/04/19 04:05 04:10 04:11 Pulse Rate 90 80 81 Blood Pressure O2 Sat by Pulse 94 95 94 Oximetry 11/04/19 11/04/19 11/04/19 04:15 04:16 04:20 Pulse Rate 91 H 85 85 Blood Pressure O2 Sat by Pulse 98 94 94 Oximetry 11/04/19 11/04/19 11/04/19 04:21 04:25 04:28 Pulse Rate 85 88 80 Blood Pressure O2 Sat by Pulse 94 95 94 Oximetry 11/04/19 11/04/19 11/04/19 04:30 04:33 04:35 Pulse Rate 80 81 81 Blood Pressure O2 Sat by Pulse 94 94 96 Oximetry 11/04/19 11/04/19 11/04/19 04:40 04:43 04:45 Pulse Rate 79 78 80 Blood Pressure O2 Sat by Pulse 97 94 95 Oximetry 11/04/19 11/04/19 11/04/19 04:49 04:50 04:54 Pulse Rate 78 82 74 Blood Pressure O2 Sat by Pulse 93 96 94 Oximetry 11/04/19 11/04/19 11/04/19 04:55 05:00 05:01 Pulse Rate 83 75 90 Blood Pressure O2 Sat by Pulse 96 95 94 Oximetry 11/04/19 11/04/19 11/04/19 05:05 05:10 05:13 Pulse Rate 85 74 84 Blood Pressure O2 Sat by Pulse 95 95 94 Oximetry 11/04/19 11/04/19 11/04/19 05:15 05:20 05:25 Pulse Rate 74 87 80 Blood Pressure O2 Sat by Pulse 98 98 97 Oximetry 11/04/19 11/04/19 11/04/19 05:30 05:31 05:35 Pulse Rate 70 78 79 Blood Pressure O2 Sat by Pulse 95 94 95 Oximetry 11/04/19 11/04/19 11/04/19 05:40 05:45 05:50 Pulse Rate 99 H 86 88 Blood Pressure O2 Sat by Pulse 95 94 96 Oximetry 11/04/19 11/04/19 11/04/19 05:52 05:55 05:58 Pulse Rate 111 H 79 94 H Blood Pressure O2 Sat by Pulse 94 96 94 Oximetry 11/04/19 11/04/19 11/04/19 06:00 06:05 06:10 Pulse Rate 70 101 H 78 Blood Pressure O2 Sat by Pulse 98 96 97 Oximetry 11/04/19 11/04/19 11/04/19 06:12 06:15 06:20 Pulse Rate 87 73 79 Blood Pressure O2 Sat by Pulse 94 96 95 Oximetry 11/04/19 11/04/19 11/04/19 06:25 06:30 06:35 Pulse Rate 99 H 74 71 Blood Pressure O2 Sat by Pulse 96 95 95 Oximetry 11/04/19 11/04/19 11/04/19 06:40 06:45 06:50 Pulse Rate 87 98 H 81 Blood Pressure O2 Sat by Pulse 98 96 95 Oximetry 11/04/19 11/04/19 11/04/19 06:55 06:57 07:00 Pulse Rate 99 H 80 74 Blood Pressure O2 Sat by Pulse 96 94 98 Oximetry 11/04/19 11/04/19 11/04/19 07:05 07:10 07:15 Pulse Rate 90 91 H 25 L Blood Pressure O2 Sat by Pulse 98 96 0 L Oximetry 11/04/19 11/04/19 11/04/19 07:20 07:25 07:30 Pulse Rate 89 81 86 Blood Pressure O2 Sat by Pulse 98 96 95 Oximetry 11/04/19 11/04/19 11/04/19 07:35 07:40 07:45 Pulse Rate 79 76 85 Blood Pressure O2 Sat by Pulse 98 97 96 Oximetry 11/04/19 11/04/19 11/04/19 07:47 07:50 07:55 Pulse Rate 96 H 112 H 106 H Blood Pressure O2 Sat by Pulse 93 97 97 Oximetry 11/04/19 11/04/19 11/04/19 08:00 08:02 08:05 Pulse Rate 108 H 79 109 H Blood Pressure O2 Sat by Pulse 97 94 94 Oximetry 11/04/19 11/04/19 11/04/19 08:09 08:10 08:15 Pulse Rate 106 H 87 80 Blood Pressure O2 Sat by Pulse 93 99 98 Oximetry 11/04/19 11/04/19 08:20 08:25 Pulse Rate 82 112 H Blood Pressure O2 Sat by Pulse 98 97 Oximetry - Exam Breasts: deferred Cardiovascular: Regular rate Lungs: Normal air movement Abdomen: Present: normal appearance, soft. Absent: distention, tenderness Uterus: Present: normal FHR: auscultation normal, category 1 Uterine Contraction Monitor Mode: External Uterine Contraction Pattern: Irregular Uterine Tone Measurement Phase: Resting Uterine Contraction Intensity: Mild Extremities: normal Deep Tendon Reflex Grade: Normal +2 - Labs Labs: Abnormal Labs 11/03/19 12:15 MCH 27 L RDW 15.4 H Laboratory Results - last 24 hr 11/03/19 11/03/19 12:15 12:30 WBC 8.9 RBC 3.75 Hgb 10.3 Hct 30.9 MCV 82 MCH 27 L MCHC 33 RDW 15.4 H Plt Count 316 Lymph % (Auto) 22.8 [place] % (Auto) 6.2 Eos % (Auto) 1.5 Baso % (Auto) 0.5 Lymph # 2.0 [place] # 0.6 Eos # 0.1 Baso # 0.0 Seg Neutrophils % 69.0 Seg Neutrophils # 6.2 Blood Type O POSITIVE Antibody Screen Negative
[2019-11-04] MEDS ORDERED: PRENATAL VIT27-FE FUMARATE-FOLIC ACID VIT TAB PO SCH (10:00)
[2019-11-04] MEDS: BETAMET ACET/BETAMET NA PH 6 MG/ML INJ 5 ML MDV IM SCH (14:42)
--- NOTE | 2019-11-05 02:56 | Event Note ---
Date: 11/05/19 (US completed) US report completed Baby A is vertex and Baby B is transverse. Pt continues to desire c/s and does want tubal ligation. All consents signed All questions addressed. Pt is NPO. Will inform . Pt and family aware surgery will be in the morning. Tubal consent faxed from office.
--- NOTE | 2019-11-05 03:02 | Ultrasound Report ---
OBSTETRIC ULTRASOUND INDICATION: Evaluate presentation COMPARISON: No prior relevant imaging studies are available for comparison. TECHNIQUE: Transabdominal imaging was performed. FINDINGS: FETUS A: lie: Cephalic, on the left. Heart rate: 139 bpm. FETUS B: lie: Transverse, maternal right. This fetus is on the right. Heart rate: 126 bpm. CONCLUSION: Viable twin intrauterine , positions as above. Signer Name: Saul Reilly MD Signed: 11/05/2019 2:57 AM Workstation Name: [id number]
[2019-11-05] MEDS ORDERED: LACTATED RINGERS 1,000 ML ONE (07:14)
[2019-11-05] MEDS ORDERED: OXYTOCIN 20 UNIT/1000ML DRIP 20 UNITS/1,000 ML BAG IV SCH ×2 (08:00→10:00)
[2019-11-05] MEDS ORDERED: ceFAZolin/Water 2 GM/20 ML 2 GM/20 ML SYRINGE IV NR (08:00)
[2019-11-05] MEDS ORDERED: FAMOTIDINE 20 MG/2 ML INJ IV ONE (08:00)
[2019-11-05] MEDS ORDERED: BICITRA ORAL LIQD 30ML PO ONE (08:00)
[2019-11-05] MEDS ORDERED: LACTATED RINGERS 1,000 ML IV SCH (08:00)
[2019-11-05] MEDS ORDERED: METOCLOPRAMIDE 10 MG/2 ML INJ IV ONE (08:00)
--- NOTE | 2019-11-05 08:02 | Event Note ---
Date: 11/05/19 Pt desires c/s for malpresentation of twin B and c/s indicated for twins with IUGR of twin A. All risk, benefits and alternatives were d/w pt. She also desires BTL. Again all risk, benefits and alternatives were d/w pt and questions were addressed and answered. Consents have been signed and placed on the chart. Will proceed to OR with primary c/s with BTL.
[2019-11-05] MEDS ORDERED: ceFAZolin/STERILE WATER 2 GM/20 ML SYRINGE IV ONE (08:12)
[2019-11-05] MEDS ORDERED: WATER FOR IRRIG STERILE 1,500 ML BOTTLE IR ONE (08:20)
[2019-11-05] MEDS ORDERED: SODIUM CHLORIDE 0.9% IRR 1,500 ML BOTTLE IR ONE (08:20)
[2019-11-05] MEDS ORDERED: ONDANSETRON 4 MG/2 ML INJ ONE (08:38)
[2019-11-05] MEDS ORDERED: OXYTOCIN 10 UNIT/1 ML INJ ONE ×2 (08:38→08:40)
[2019-11-05] MEDS ORDERED: KETOROLAC 30 MG/1 ML INJ ONE (09:00)
[2019-11-05] MEDS ORDERED: WITCH HAZEL/ GLYCERIN PAD TP PRN (09:08)
[2019-11-05] MEDS ORDERED: NALOXONE 0.4 MG/1 ML INJ IV PRN (09:08)
[2019-11-05] MEDS ORDERED: LANOLIN/ZINC/DIMETHICONE (LANSINOH) 7 GM TP PRN (09:08)
[2019-11-05] MEDS ORDERED: KETOROLAC 30 MG/1 ML INJ IV PRN (09:16)
--- NOTE | 2019-11-05 09:19 | Anesthesia Consultation ---
Anesthesia Consult and Med Hx Date of service: 11/05/19 - Airway Anesthetic Teeth Evaluation: Good ROM Head & Neck: Adequate Mental/Hyoid Distance: Adequate Mallampati Class: Class II Intubation Access Assessment: Probably Good - Pulmonary Exam CTA: Yes - Cardiac Exam Cardiac Exam: RRR - Pre-Operative Health Status ASA Pre-Surgery Classification: ASA2 Proposed Anesthetic Plan: Spinal - Pre-Anesthesia Comment Pre-Anesthesia Comments: PSH: ORAL SUGERY(TEETH EXTRACTIONS). NO ANESTHESIA COMPLICATIONS - Pulmonary Hx Smoking: No Hx Asthma: No Hx Respiratory Symptoms: No SOB: No COPD: No Home Oxygen Therapy: No Hx Pneumonia: No Hx Sleep Apnea: No - Cardiovascular System Hx Hypertension: No Hx Coronary Artery Disease: No Hx Heart Attack/AMI: No Hx Angina: No Hx Percutaneous Transluminal Coronary Angioplasty (PTCA): No Hx Cardia Arrhythmia: No Hx Pacemaker: No Hx Internal Defibrillator: No Hx Valvular Heart Disease: No Hx Heart Murmur: No Hx Peripheral Vascular Disease: No - Central Nervous System Hx Neuromuscular Disorder: No Hx Seizures: No CVA: No Hx Back Pain: No Hx Psychiatric Problems: No - Gastrointestinal Hx Ulcer: No Hx Gastroesophageal Reflux Disease: No - Endocrine Hx Renal Disease: No Hx End Stage Renal Disease: No Hx Cirrhosis: No Hx Liver Disease: No Hx Insulin Dependent Diabetes: No Hx Non-Insulin Dependent Diabetes: No Hx Thyroid Disease: No Hx Hypothyroidism: No Hx Hyperthyroidism: No - Hematic Hx Anemia: No Hx Sickle Cell Disease: No - Other Systems Hx Alcohol Use: No Hx Substance Use: No Hx Cancer: No Hx Obesity: No
--- NOTE | 2019-11-05 09:21 | Anesthesia Day of Surgery ---
Anesthesia Day of Surgery - Day of Surgery Patient Examined: Yes Patient H&P Reviewed: Yes Patient is NPO: Yes Beta Blockers: No Cardiac Clearance: No Pulmonary Clearance: No Dk's Test: N/A
[2019-11-05] MEDS ORDERED: ONDANSETRON 4 MG/2 ML INJ IV PRN (09:22)
[2019-11-05] MEDS ORDERED: HYDROmorphone 1 MG/1 ML INJ IV PRN (09:22)
--- NOTE | 2019-11-05 09:22 | Post Anesthesia Evaluation ---
- Post Anesthesia Evaluation Patient Participated: Yes Airway Patent: Yes Stable Respiratory Function: Yes Nausea/Vomiting: No Temp > 96.8F: Yes Pain Manageable: Yes Adequeate Hydration: Yes Anesthesia Complications: No Block Receding Appropriately: Yes Patient on Ventilator: No
--- NOTE | 2019-11-05 09:29 | Operative Report ---
Operative Report Operative Report: Date of procedure: 11/05/2019 Pre-operative diagnosis: 34 weeks gestation Twin gestation Intrauterine growth restriction Malpresentation of twin B Desires permanent sterilization Post-operative diagnosis: Same plus double nuchal cord of twin B Procedure name(s): Primary low transverse section via Pfannenstiel skin incision Bilateral tubal ligation via modified Jose A method Surgeon: Dr. Wylie Bridge Painter Helper: Sparkle Beebe certified nurse contact lens blocker Anesthesia: Spinal EBL: 800 mL Urine output: 100 mL of clear urine out at the end of the procedure Fluids: 1700 mL Findings: Twin A: Liveborn female weight 3 lbs. 4 oz. Apgars of 8 and 9 at one and 5 minutes Twin B: Liveborn female 3 lbs. 15 oz. Apgars of 8 and 9 at one and 5 minutes Grossly normal fallopian tubes and ovaries bilaterally Normal uterus Indications: Patient sent in for delivery due to intrauterine growth restriction by maternal- medicine specialist. Upon admission was noted to have malpresentation of twin B. Patient underwent steroids and subsequently was scheduled for section with tubal ligation. All risks benefits and alternatives were discussed with the patient. Consents were signed and placed on the chart. Procedure: Patient was taking to the operating room. Patient was then prepped and draped in sterile fashion after anesthesia was found to be adequate. A low transverse skin incision was made with the scalpel and carried down to the underlying layer of fascia with the Bovie. The fascia was then incised in the midline and this incision was extended bilaterally with the Bovie. The superior aspect of the fascia was grasped with Anupam clamps tented upward and dissected off of the anterior rectus muscles with the scalpel. In similar fashion the inferior aspect of the fascia was grasped with Anupam clamps tented upward and dissected off of the anterior rectus muscles. The rectus muscles were then bluntly divided in the midline. The peritoneum was identified and entered into sharply. The bladder blade was placed. The bladder flap was created using the Metzenbaum scissors. The bladder blade was replaced. A lower transverse uterine incision was made with the scalpel and extended bilaterally with the bandage scissors. Artificial rupture of membranes was performed yielding clear amniotic fluid of twin A. The 's head was then delivered atraumatically. The anterior shoulder and rest of infant delivered without difficulty. The umbi lical cord was clamped x2. The cord was cut. The infant was then placed in sterile bassinet. Cord blood was collected. Attention was then turned to twin B. Twin B was noted to have rotated in to vertex presentation. Artificial rupture of membranes yielded clear fluid. Head was delivered atraumatically. Double nuchal cord was noted and was easily reduced. Anterior shoulder and rest of infant delivered without difficulty. Cord was clamped 2. Infant was placed in sterile bassinet. The cord blood was collected. The placenta was manually extracted in its entirety. The uterus was exteriorized and cleared of all clots and debris. The uterine incision was closed using 0 Vicryl in a running locking fashion. A second imbricating layer of the same suture was then created. Attention was then turned to the fallopian tubes. A knuckle of the fallopian tube was suture ligated 2 and transected. Portion of tube was then handed off for pathology. This was done bilaterally The posterior cul-de-sac was copiously irrigated. The uterus was returned to the abdomen. The gutters were also irrigated. The anterior rectus muscles were reapproximated using 3-0 Vicryl. The anterior rectus fascia was reapproximated using 0 Vicryl in a running fashion. The subcuticular fat was reapproximated using 2-0 Vicryl in a running fashion. The skin was reapproximated with a 4-0 Monocryl with a subcuticular stitch.. The patient tolerated the procedure well. Sponge lap and needle counts were all correct x3. Patient was taken to the recovery room awake and in stable condition.
[2019-11-05] MEDS ORDERED: BUPIVACAINE/PF (0.5%) 5 MG/1 ML 30 ML VIAL INFILTRATI ONE (11:52)
[2019-11-05] MEDS ORDERED: MORPHINE 2 MG/1 ML INJ IV PRN (13:20)
[2019-11-05] MEDS ORDERED: D5W/LACTATED RINGERS 1,000 ML IV ONE (16:44)
[2019-11-05] MEDS ORDERED: D5W/LACTATED RINGERS 1,000 ML IV SCH (17:00)
[2019-11-05] MEDS: ceFAZolin/NS 1 GM/50 ML 1 GM/50 ML BAG IV SCH (18:24)
[2019-11-05] MEDS: HYDROcodone/ACETAMINOPHEN 5-325 MG TAB PO PRN (20:31)
[2019-11-05] MEDS ORDERED: IBUPROFEN 800 MG TAB PO PRN (21:00)
[2019-11-05] MEDS ORDERED: HYDROcodone/ACETAMINOPHEN 5-325 MG TAB PO PRN (21:00)
[2019-11-05 21:09] LABS: Hematocrit 23.5 % (30.3-42.9); Hemoglobin 7.7 gm/dl (10.1-14.3)
[2019-11-06] MEDS: HYDROcodone/ACETAMINOPHEN 5-325 MG TAB PO PRN ×3 (03:28→17:07)
[2019-11-06] MEDS: ceFAZolin/NS 1 GM/50 ML 1 GM/50 ML BAG IV SCH (03:29)
--- NOTE | 2019-11-06 08:06 | Progress Note ---
Assessment and Plan A: 24 y.o. s/p @ 34 wks d/t IUGR, twin gestation, malprestentation of twin B. Feeling lightheaded last night after ambulation. P: Continue with care. Advance diet as tolerated. Obtain H/H this AM and monitor d/t feeling lightheaded with ambulation. RN aware. Subjective - Subjective Date of service: 11/06/19 (Pain controlled, feeling dizzy and lightheaded when ambulating.) Principal diagnosis: POD#1 s/p primary , twins, IUGR, Mal pres twin B Patient reports: appetite normal, voiding normally, dizzy ambulation, pain well controlled, flatus, ambulating normally [place]: doing well, in NICU Objective - Vital Signs Latest vital signs: Vital Signs Temp Pulse Resp BP BP Pulse Ox 11/06/19 03:28 18 11/06/19 01:08 97.7 F 71 18 91/45 100 11/05/19 20:31 18 11/05/19 17:21 98.0 F 74 18 79/41 11/05/19 13:28 20 11/05/19 10:50 97.6 F 76 20 100/57 99 11/05/19 10:29 97.8 F 68 15 97/59 98 11/05/19 10:15 70 15 101/53 99 11/05/19 10:00 70 18 91/50 98 11/05/19 09:45 66 18 89/44 98 11/05/19 09:30 72 16 90/46 97 11/05/19 09:25 70 17 91/43 97 11/05/19 09:20 74 19 91/46 96 11/05/19 09:15 73 21 90/43 96 11/05/19 09:12 98.0 F 76 21 92/46 97 Intake and Output 11/05/19 11/06/19 11/06/19 22:59 06:59 14:59 Intake Total 730 480 Output Total 1400 800 Balance -670 -320 Intake: IV 50 ANCEF/NS 1 GM/50 ML 1 gm 50 In 50 ml @ 100 mls/hr IV Q8H VIDHYA Rx#:[id number] Oral 680 480 Output: Urine 1400 800 Indwelling 300 Void 1100 800 Other: Total, Intake Amount 200 240 Total, Output Amount 300 800 # Voids Indwelling Catheter 1 Void 1 1 - Exam Breasts: Present: deferred Cardiovascular: Present: Regular rate, Normal S1, Normal S2 Lungs: Present: Clear to auscultation, Normal air movement Abdomen: Present: normal appearance, soft, normal bowel sounds Vulva: both: normal Uterus: Present: normal, firm Extremities: Present: normal Deep Tendon Reflex Grade: Normal +2 Incision: Present: normal, dry (No drainage noted.), intact (No s/sx of infection.) Comments: Minimal lochia rubra, fundus firm, BP's 90-100's/40-50's. Adequate I&O's. H/H ordered for this AM d/t feeling dizzy last night with ambulation. Dr. Almeida aware. - Labs Labs: Abnormal lab results 11/05/19 Range/Units 20:43 Hgb 7.7 L (10.1-14.3) gm/dl Hct 23.5 L D (30.3-42.9) %
[2019-11-06 08:57] LABS: Hematocrit 25.5 % (30.3-42.9); Hemoglobin 8.5 gm/dl (10.1-14.3)
[2019-11-06] MEDS ORDERED: TETANUS,DIPH,PERTUSS(ACELL) VACCINE 0.5 ML SYRINGE IM ONE (09:19)
[2019-11-06] MEDS: FERROUS SULFATE 325 MG TAB PO SCH (09:36)
[2019-11-07] MEDS: HYDROcodone/ACETAMINOPHEN 5-325 MG TAB PO PRN ×2 (03:39→13:08)
[2019-11-07] MEDS ORDERED: TETANUS,DIPH,PERTUSS(ACELL) VACCINE 0.5 ML SYRINGE IM ONE (06:00)
--- NOTE | 2019-11-07 08:13 | Progress Note ---
Assessment and Plan Patient resting, c/o cramping pain. Order for motrin changed from PRN to scheduled. encouraged ambulation and shower today. Pt wishes to delay d/c home until tomorrow d/t babies being in NICU. VSSAF, H&H Stable. - Patient Problems (1) Sterilization Current Visit: Yes Status: Acute (2) delivery delivered Current Visit: Yes Status: Acute Plan to address problem: Continue postop pathway Shower and ambulate today ISS use Anticipate d/c home tomorrow (3) Anemia due to acute blood loss Current Visit: Yes Status: Acute Plan to address problem: PO FE and continue PNV Asymptomatic Subjective - Subjective Date of service: 11/07/19 Principal diagnosis: POD#2 s/p primary , twins; sterilization Interval history: EDC Confirmation: 12/15/2019 Past History : 4 Term Births: 2 Premature Births: 0 Living Children: 2 Para: 2 Mult. Births: 0 Prev : 0 Prev. attempt? 0 Aborta: 1 Elect. Ab: 0 Spont. Ab: 1 Ectopics: 0 # 1 Delivery date: 2012 Weeks Gestation: 40 Delivery type: Delivery location: [facility] Infant Sex: Female Comments: no complications # 2 Delivery date: 04/29/2018 Weeks Gestation: 39 Delivery type: Vaginal Anesthesia type: none Delivery location: [facility] Sex: male weight: 6.75 Comments: precipitous delivery # 3 Delivery date: 02/2019 Weeks Gestation: 4 Comments: expt mgmt Past Medical History: Reviewed history from 12/02/2017 and no changes required: Negative Past Medical History Past Surgical History: Reviewed history from 12/02/2017 and no changes required: Negative Past Surgical History Past Medical History Abnormal PAP: negative NILSA Exposure: negative Infertility: negative Uterine Anomaly: negative Uterine Surgery (not C/S): negative Other Gynecologic Problems: negative Social Hx: single. lives with patents and children no e/t/d unemployed Infection History Hx of STD: none HIV Risk Eval: low risk Hepatitis B Risk Eval: low risk Personal hx. of genital herpes: no Partner hx. of genital herpes: no Rash, Viral, or Febrile illness since last LMP? no Varicella/Chicken Pox Status: Immunized TB Risk: no Genetic History Congenital Heart Defect: Mom: no Dad: no Surinder Disease: Mom: no Dad: no Thalassemia Mom: no Dad: no Neural Tube Defect Mom: no Dad: no Down's Syndrome Mom: no Dad: no Sekou-Sachs Mom: no Dad: no Sickle Cell Disease/Trait Mom: no Dad: no Hemophilia Mom: no Dad: no Muscular Dystrophy Mom: no Dad: no Cystic Fibrosis Mom: no Dad: no [place] Chorea Mom: no Dad: no Mental Retardation Mom: no Dad: no Fragile X Mom: no Dad: no Other Genetic/Chromosomal Disorder Mom: no Dad: no Child w/other defect Mom: no Dad: no Enviromental Exposures Enviromental Exposures Reviewed Xray Exposure: no Medication, drug, or alcohol use since LMP: no Chemical/Other Exposure: no Exposure to Cat Liter: no Hx of Parvovirus (Fifth Disease): no Occupational Exposure to Children: none Active Medications (reviewed today): PNV () Current Allergies: No known allergies Patient reports: appetite normal, voiding normally, pain well controlled, flatus, ambulating normally, no dizzy ambulation, no nauseated : in NICU Objective - Vital Signs Latest vital signs: Vital Signs Temp Pulse Resp BP Pulse Ox 11/06/19 23:27 98.5 F 63 18 98/56 98 11/06/19 17:02 98.3 F 68 20 96/53 97 11/06/19 08:15 97.5 F L 66 20 102/60 98 Intake and Output 11/06/19 11/07/19 11/07/19 23:59 07:59 15:59 Intake Total 360 Output Total 600 Balance -240 Intake: Oral 360 Output: Urine 600 Void 600 Other: Total, Intake Amount 120 Total, Output Amount 600 - Exam Breasts: Present: normal Cardiovascular: Present: Regular rate Lungs: Present: Clear to auscultation, Normal air movement Abdomen: Present: normal appearance, soft Vulva: both: normal Uterus: Present: normal, firm, fundal height at umbilicus Extremities: Present: normal Deep Tendon Reflex Grade: Normal +2 Incision: Present: normal, dry, intact - Labs Labs: Abnormal lab results 11/06/19 Range/Units 08:42 Hgb 8.5 L (10.1-14.3) gm/dl Hct 25.5 L (30.3-42.9) %
[2019-11-07] MEDS: IBUPROFEN 800 MG TAB PO SCH ×2 (08:30→17:08)
[2019-11-07] MEDS: FERROUS SULFATE 325 MG TAB PO SCH ×2 (10:06→10:07)
[2019-11-08] MEDS: IBUPROFEN 800 MG TAB PO SCH ×2 (00:05→05:03)
[2019-11-08] MEDS ORDERED: TETANUS,DIPH,PERTUSS(ACELL) VACCINE 0.5 ML SYRINGE IM ONE (06:00)
--- NOTE | 2019-11-08 06:10 | Discharge Summary ---
Providers - Providers Date of Admission: 11/03/19 12:07 Date of discharge: 11/08/19 (pt agrees with d/c) Attending physician: CRISTINA LEE 11/03/19 12:18 Consult to Physician [CONS] Routine Comment: Consulting Provider: MIKE CHANG Physician Instructions: Reason For Exam: delivery, [place]/di twins @ 34 weeks, IUGR A [facility] Reason for admission: IUP - , section Delivery: Procedure: bilateral tubal ligation, primary low transverse (mo/di twin gestation; twin B malpresentation) Episiotomy: none Laceration: none Incision: normal, dry, intact Other procedures: none complications: none Discharge diagnosis: delivery [place] baby: twins (girl/girl) Hospital course: uncomplicated section w/BTL @ 34weeks Mo/Di twin gestation Twin B malpresentation Pt resting No c/o voiced NBs remain in NICU stable VSS FF below umb Lochia scant Incision D&I H&H stable No s/sx of anemia. Doing well s/p P: d/c today with instructions RTO 1 wk. RX provided @ d/c Condition at discharge: Good Disposition: DC-01 TO HOME OR SELFCARE - Discharge Diagnoses (1) delivery delivered Status: Acute Comment: RTO one week postop care Plan - Discharge Medications Prescriptions: Docusate Sodium [Colace] 100 mg PO BID PRN #60 capsule PRN Reason: Constipation Lidocain2.5%/Prilocai2.5% [Emla] 2 gm TP ONCE #1 tube Ferrous Sulfate [Feosol 325 MG tab] 325 mg PO QDAY #60 tablet Ibuprofen [Motrin 800 MG tab] 800 mg PO Q8HR PRN #30 tablet PRN Reason: Pain, Moderate (4-6) oxyCODONE /ACETAMINOPHEN [Percocet 5/325] 1 tab PO Q4HR #30 tab - Provider Discharge Summary Activity: routine, no sex for 6 weeks, no heavy lifting 4 weeks, no strenuous exercise Diet: routine Instructions: routine Additional instructions: [] Smoking cessation referral if applicable(refer to patient education folder for contact #) [] Refer to [facility]'s [facility] Booklet Call your doctor immediately for: * Fever > 100.5 * Heavy vaginal bleeding ( >1 pad per hour) * Severe persistent headache * Shortness of breath * Reddened, hot, painful area to leg or breast * Drainage or odor from incision. * Keep incision clean and dry at all times and follow doctor's instructions regarding bathing/showering - Follow up plan Follow [facility] MD MIKE [Primary Care Provider] - 7 Days DARLENE STAFFORD CNM [Advanced Practice Nurse] - 7 Days (Please call [phone] to schedule your postoperative visit in one week. Take medications as prescribed. Call with concerns.)
[2019-11-08 09:11] VITALS: BP 96/51
[2019-11-08] MEDS: FERROUS SULFATE 325 MG TAB PO SCH (09:41)
[2019-11-08] MEDS: HYDROcodone/ACETAMINOPHEN 5-325 MG TAB PO PRN (09:41)
== END 2019-11-08 12:15 | disposition home or self-care (01) | DRG 765 ==
LOC: LD 12:07 → OB 11-05 11:03
PROVIDERS: ADMIT Obstetrics & Gynecology; ATTEND Obstetrics & Gynecology
PROC: 10D00Z1 Extraction of Products of Conception, Low, Open Approach (ICD-10-PCS; principal; 2019-11-05)
PROC: 0UB73ZZ Excision of Bilateral Fallopian Tubes, Percutaneous Approach (ICD-10-PCS; 2019-11-05)
PROC: 3E0234Z Introduction of Serum, Toxoid and Vaccine into Muscle, Percutaneous Approach (ICD-10-PCS; 2019-11-06)
DX: O36.5931 Maternal care for other known or suspected poor fetal growth, third trimester, fetus 1 (principal); O60.14X0 Preterm labor third trimester with preterm delivery third trimester, not applicable or unspecified; D62 Acute posthemorrhagic anemia; Z3A.34 34 weeks gestation of pregnancy; Z37.2 Twins, both liveborn; O32.2XX2 Maternal care for transverse and oblique lie, fetus 2; O30.033 Twin pregnancy, monochorionic/diamniotic, third trimester; O90.81 Anemia of the puerperium; O69.81X2 Labor and delivery complicated by cord around neck, without compression, fetus 2; Z23 Encounter for immunization; Z30.2 Encounter for sterilization
CPT/HCPCS: 36415; 76815; 85014; 85018; 85025; 86850; 86900; 86901; 87116; 88302; 88307; 90471; 90715; G0378; J0690; J0702; J1885; J2270; J2405; J2590; J2765; J7120; J7121